=== PATIENT | male | born 1950 | race Caucasian/White ===

== ENCOUNTER 2020-01-11 18:13 | Emergency (ER) | payer OTHER, MEDICARE ==
[~2020-01-11] VITALS: Ht 188 cm; Wt 52.6 kg
--- NOTE | ~2020-01-11 | EMS ---
[facility] [address] [place] [address] EMS Patient Care Report Name: CELESTINO WELCH Room #: DEP Ale#: [id number] Admission: 01/11/20 Attend Phys: Discharge: 01/11/20 Date of : 46 Report #: [id number] THIS REPORT FOR: //name// Report Transmitted: 01/11/2020 23:03 EMS Care Summary [facility] MED-ACT Incident [id number] @ 01/11/2020 17:31 Incident Location [address] [place] [address] Patient CELESTINO WELCH Male, 69 Years 1950 Patient Address [address] [place] [address] Patient History Alzheimer's,Amputee,Anemia,Alcohol Abuse, Patient Allergies No known allergies, Patient Medications Levothyroxine, Tramadol, Plavix, Seroquel, Haloperidol, Chief Complaint head hurts Disposition Transported No Lights/[place] Dispatch Reason Falls Transported To [facility] Narrative M1133 dispatched non emergent to C2 injuries from a fall. Upon arrival staff report she went to check on the pt and found that he had a hematoma to left [facility] [address] [place] [address] EMS Patient Care Report Name: CELESTINO WELCH Room #: DEP ANIA Aguilera#: [id number] Admission: 01/11/20 Attend Phys: Discharge: 01/11/20 Date of : 46 Report #: [id number] forehead. Staff report they do not know of any recent calls. Staff report no change in pt mentation. EMS contacted pt???s daughter to inform her that EMS would prefer to transport to a trauma center due to the pt taking blood thinners. The pt???s daughter is adamant about transport to [facility]. Patient denies any neck or back pain. Patient denies loss of consciousness. Pt poor historian due to Alzheimer???s. Pt states he has pain to his right arm and his amputated left leg. Pt states this pain is normal. Pt denies headache. Pt denies blurred vision. Pt denies nausea or vomiting. Pt denies weakness. Pt assessment performed. Vital signs assessed. Pt assisted to cot. Pt moved to ambulance. Biocom performed prior to departure of scene to call [facility] to see if they will accept this pt due to pt taking blood thinners with injuries to the head. [facility] states they will accept the pt. Pt report given to RN. Pt care transferred to [facility] without incident. M1133 cleared call. Initial Vitals @18:00P: 96,BP: 108/63,SpO2: 98, @17:52P: 43,SpO2: 82, @17:44P: 102,R: 16,BP: 127/70,Pain: 2/10,GCS: 14,SpO2: 95,Revised Trauma: 12, @17:52BP: 116/69,SpO2: 95, @18:02P: 94,BP: 119/74,SpO2: 97, Assessments @18:02MENTAL:Person Oriented,Event Oriented,Place Oriented,SKIN:HEENT:Head/Face: Other,Eyes: Left Pupil: 3-mm,Eyes: Right Pupil: 3-mm,Neck/Airway: No Abnormalities,LUNG SOUNDS:General: No Abnormalities,ABDOMEN:General: No Abnormalities,PELVIS//GI:EXTREMITIES:Right Arm: Other,Left Leg: Other,Left Arm: No Abnormalities,Right Leg: No Abnormalities,PULSE:Radial: 2+ Normal,NEURO:No Abnormalities, Impression Injury of Head Timeline 17:30,Call Received 17:30,Psap Call 17:31,Dispatched 17:32,En Route 17:37,On Scene 17:40,At Patient 17:44,BP: 127/70 M,PULSE: 102,RR: 16 R,SPO2: 95 Ox,ETCO2: ,BG: ,PAIN: 2,GCS: 14, 17:52,BP: / M,PULSE: 43,RR: R,SPO2: 82 Ox,ETCO2: ,BG: ,PAIN: ,GCS: , [address] [place] [address] EMS Patient Care Report Name: REBEKAHCELESTINO Room #: DEP ANIA Aguilera#: [id number] Admission: 01/11/20 Attend Phys: Discharge: 01/11/20 Date of : 46 Report #: [id number] 17:52,BP: 116/69 M,PULSE: ,RR: R,SPO2: 95 Ox,ETCO2: ,BG: ,PAIN: ,GCS: , 17:53,Depart Scene 18:00,BP: 108/63 M,PULSE: 96,RR: R,SPO2: 98 Ox,ETCO2: ,BG: ,PAIN: ,GCS: , 18:02,BP: 119/74 M,PULSE: 94,RR: R,SPO2: 97 Ox,ETCO2: ,BG: ,PAIN: ,GCS: , 18:10,At Destination 18:34,Call Closed Disclaimer v1.1 Copyright 2020 [employer] This EMS Care Summary contains data elements from the applicable legal record (which may be displayed differently). It is designed to provide pertinent information for the following purposes: continuity of care, clinical quality, and state data reporting. The complete legal record is available to ED staff and administrators of the receiving hospital in [facility]'s Patient Tracker. All data is provided "as is."
[2020-01-11 22:50] VITALS: BP 149/81
== END 2020-01-11 23:42 | disposition home or self-care (01) ==
LOC: ER 18:13
DX: S09.8XXA Other specified injuries of head, initial encounter (principal); Z89.512 Acquired absence of left leg below knee; W01.0XXA Fall on same level from slipping, tripping and stumbling without subsequent striking against object, initial encounter; Y93.89 Activity, other specified; Y92.89 Other specified places as the place of occurrence of the external cause; Y99.8 Other external cause status

== ENCOUNTER 2020-02-02 13:00 | Emergency (ER) | payer OTHER, MEDICARE ==
[~2020-02-02] VITALS: Ht 188 cm; Wt 54.4 kg
--- NOTE | ~2020-02-02 | EMS ---
[facility] [address] [place] [address] EMS Patient Care Report Name: CELESTINO WELCH Room #: REG ANIA Aguilera#: [id number] Admission: 02/02/20 Attend Phys: Discharge: Date of : 46 Report #: [id number] THIS REPORT FOR: //name// Report Transmitted: 02/02/2020 13:50 EMS Care Summary [facility] MED-ACT Incident [id number] @ 02/02/2020 12:16 Incident Location [facility] [address] [place] [address] Patient CELESTINO WELCH Male, 69 Years 1950 Patient Address [address] [place] [address] Patient History Alzheimer's,Amputee,Anemia,Alcohol Abuse, Patient Allergies No known allergies, Patient Medications Seroquel, Plavix, Tramadol, Haloperidol, Levothyroxine, Chief Complaint " I fell out of my wheelchair" Disposition Transported No Lights/[place] Dispatch Reason Falls Transported To [facility] Narrative EMS made contact with 1 male pt sitting cross legged on the floor. Pt was A&O x4 and had and obvious cut to his forehead and right arm. Pt reported that he [facility] [address] [place] [address] EMS Patient Care Report Name: CELESTINO WELCH Room #: DEYSI Aguilera#: [id number] Admission: 02/02/20 Attend Phys: Discharge: Date of : 46 Report #: [id number] leaned too far forward in his wheelchair and feel out. Pt reported having a NICOLAS since the fall but no other acute pain. Pt denied dizziness, lightheadedness or anything else precipitating the fall. Pt denied head neck or back pain, SOA, CP, N/V or abd. pain. Pt reported his pain was a 2/10 and located on his head only. Pt voiced no further complaints/pertinent information. Initial Vitals @12:39P: 77,R: 16,BP: 155/80,Pain: 0/10,GCS: 15,SpO2: 94,Revised Trauma: 12, @12:45P: 78,R: 16,BP: 164/89,SpO2: 97, @12:40P: 86,SpO2: 95,[place] Suspected: false @12:51P: 16,R: 16,BP: 144/83,SpO2: 97, Assessments @12:26MENTAL:Person Oriented,Time Oriented,Event Oriented,Place Oriented,SKIN:HEENT:Head/Face: LAC,Neck/Airway: No Abnormalities,LUNG SOUNDS:ABDOMEN:PELVIS//GI:EXTREMITIES:Left Arm: No Abnormalities,Right Arm: No Abnormalities,Left Leg: No Abnormalities,Right Leg: No Abnormalities,PULSE:NEURO:No Abnormalities, Impression Injury of Head Procedures @12:30Surgical Mask on PatientResponse: Unchanged@12:33BandagingResponse: UnchangedSucceeded Timeline 12:14,Call Received 12:14,Psap Call 12:16,Dispatched 12:17,En Route 12:21,On Scene 12:24,At Patient 12:30,Surgical Mask on Patient,Response: Unchanged 12:33,Bandaging,Response: UnchangedSucceeded, 12:33,Depart Scene 12:39,BP: 155/80 M,PULSE: 77,RR: 16 R,SPO2: 94 Ox,ETCO2: ,BG: ,PAIN: 0,GCS: 15, 12:40,BP: / M,PULSE: 86,RR: R,SPO2: 95 Ox,ETCO2: ,BG: ,PAIN: ,GCS: , 12:45,BP: 164/89 M,PULSE: 78,RR: 16 R,SPO2: 97 Ox,ETCO2: ,BG: ,PAIN: ,GCS: , 12:51,BP: 144/83 M,PULSE: 16,RR: 16 R,SPO2: 97 Ox,ETCO2: ,BG: ,PAIN: ,GCS: , 12:54,At Destination 13:07,Call Closed Disclaimer v1.1 Copyright 2020 [employer] This EMS Care Summary contains data elements from the applicable legal record [address] [address] EMS Patient Care Report Name: REBEKAHCELESTINO Room #: REG ANIA Aguilera#: [id number] Admission: 02/02/20 Attend Phys: Discharge: Date of : 46 Report #: [id number] (which may be displayed differently). It is designed to provide pertinent information for the following purposes: continuity of care, clinical quality, and state data reporting. The complete legal record is available to ED staff and administrators of the receiving hospital in [facility]'s Patient Tracker. All data is provided "as is."
[2020-02-02] MEDS ORDERED: PLAVIX 75 MG TA75 MG PO (13:09)
[2020-02-02] MEDS ORDERED: FEROSUL325 M1 PO (13:10)
[2020-02-02] MEDS ORDERED: ACID CONTROLLER20 MG PO (13:10)
[2020-02-02] MEDS ORDERED: HALOPERIDOL 5 MG5 MG PO (13:10)
[2020-02-02] MEDS ORDERED: LOMOTIL 2.5-0.01 TAB PO (13:11)
[2020-02-02] MEDS ORDERED: LEVO-T50 MCG PO (13:11)
[2020-02-02] MEDS ORDERED: LYRICA100 MG PO (13:12)
[2020-02-02] MEDS ORDERED: MIRTAZAPINE7.5 MG PO (13:12)
[2020-02-02] MEDS ORDERED: NYSTATIN1 EA10 TOP (13:13)
[2020-02-02] MEDS ORDERED: THERAGRAN-M PR1 EAC1 PO (13:13)
[2020-02-02] MEDS ORDERED: SEROQUEL 25 MG25 M1 PO (13:13)
[2020-02-02] MEDS ORDERED: TRAMADOL 50 MG50 MG PO (13:14)
[2020-02-02] MEDS ORDERED: TYLENOL325 M1 PO (13:14)
[2020-02-02] MEDS ORDERED: SKIN PROTECTAN113 GM TOP (13:15)
[2020-02-02 15:44] VITALS: BP 157/84
== END 2020-02-02 15:44 | disposition home or self-care (01) ==
LOC: ER 13:00
DX: S01.01XA Laceration without foreign body of scalp, initial encounter (principal); S51.011A Laceration without foreign body of right elbow, initial encounter; Z79.01 Long term (current) use of anticoagulants; Z79.899 Other long term (current) drug therapy; W05.0XXA Fall from non-moving wheelchair, initial encounter; Y93.89 Activity, other specified; Y92.89 Other specified places as the place of occurrence of the external cause; Y99.8 Other external cause status

== ENCOUNTER 2020-02-07 03:49 | Emergency (ER) | payer OTHER, MEDICARE ==
[~2020-02-07] VITALS: Ht 170.2 cm; Wt 54.4 kg
--- NOTE | ~2020-02-07 | EMS ---
[facility] [address] [place] [address] EMS Patient Care Report Name: CELESTINO WELCH Room #: DEP ANIA Aguilera#: [id number] Admission: 02/07/20 Attend Phys: Discharge: 02/07/20 Date of : 46 Report #: [id number] THIS REPORT FOR: //name// Report Transmitted: 02/07/2020 08:09 EMS Care Summary [facility] MED-ACT Incident [id number] @ 02/07/2020 03:12 Incident Location [facility] [address] [place] [address] Patient CELESTINO WELCH Male, 69 Years 1950 Patient Address [facility] [place] [address] Patient History Other,Alzheimer's,Amputee,Anemia,Alcohol Abuse,Hypothyroidism, Patient Allergies No known allergies, Patient Medications Tramadol, Haloperidol, Seroquel, Levothyroxine, Plavix, Chief Complaint Fall Injury Disposition Transported No Lights/[place] Dispatch Reason Falls Transported To [facility] Narrative M1134 and [employer] [facility], responded to [facility] [place] for a 69 year old male who fell out of his wheelchair. Upon [facility] [address] [place] [address] EMS Patient Care Report Name: CELESTINO WELCH Room #: DEP ANIA Aguilera#: [id number] Admission: 02/07/20 Attend Phys: Discharge: 02/07/20 Date of : 46 Report #: [id number] arrival on scene, the patient was on the ground on his left side. The fall was unwitnessed by staff, but a resident stated that the patient fell approximately 30 minutes prior to EMS arrival on scene and stated he was talking the whole time including immediately after falling (no reason to suspect that there was any loss of consciousness). The patient had a previous injury to his forehead for which he had xavier in place. The fall appeared to have aggravated the injury to the patient's forehead as he had blood stemming from the injury. The patient's blood appeared to already be coagulated and dried. Bleeding was controlled naturally prior to EMS arrival on scene. Little to no swelling was noted to the area. Palpation of the patient's neck and back did not reveal any abnormalities and patient denied any pain with palpation. The patient complained of pain to his left elbow as well as his right leg. A small laceration was noted to the patient's right lower leg. The patient's left leg was previously amputated around the knee. Examination of the patient's arms and right leg revealed no crepitus or significant pain with palpation. The patient stated that he was taking blood thinners but he could not specify which ones. The list of patient conditions provided by the facility did not include any medications. Pulling up the patient's information via [employer], it is noted that the patient takes Plavix. Patient was lifted from the ground onto the stretcher. Once in the ambulance, the patient was given a surgical mask. The patient began to complain of pain to his neck, as such, a C-Collar was applied. Throughout transport patient remained AOx4. He was able to answer where he was, what day it was, who the vice president of nursing was, and what was hurting him. The patient denied any dizziness prior to or after the fall. Patient was brought to [facility] and patient report was given [id number] to [facility] ER staff. EMS was directed by hospital staff to bring the patient to ED room 9. Initial Vitals @03:37P: 101,R: 18,BP: 145/84,Pain: 2/10,GCS: 15,SpO2: 99,Revised Trauma: 12, @03:44P: 91,R: 18,BP: 152/86,Pain: 2/10,GCS: 15,SpO2: 100,Revised Trauma: 12, @03:31P: 103,R: 18,BP: 166/96,Pain: 2/10,GCS: 15,SpO2: 99,Revised Trauma: 12, @03:38P: 92,R: 18,BP: 134/78,Pain: 2/10,GCS: 15,Revised Trauma: 12, Assessments @03:22MENTAL:Person Oriented,Place Oriented,Time Oriented,Event Oriented,SKIN:HEENT:Head/Face: Other,Neck/Airway: Other,LUNG SOUNDS:ABDOMEN:PELVIS//GI:EXTREMITIES:Left Arm: Other,Right Leg: Abnormal Sensation,Left Arm: Abnormal Sensation,PULSE:Radial: 2+ Normal,NEURO: Impression Injury of Head [facility] [address] [place] [address] EMS Patient Care Report Name: CELESTINO WELCH Room #: DEP ANIA Aguilera#: [id number] Admission: 02/07/20 Attend Phys: Discharge: 02/07/20 Date of : 46 Report #: [id number] Procedures @03:30Surgical Mask on PatientResponse: Unchanged@03:35Saline Lock 0cc (18 ga) Site: Antecubital-RightResponse: UnchangedFailed Timeline 03:10,Call Received 03:10,Psap Call 03:12,Dispatched 03:14,En Route 03:18,On Scene 03:21,At Patient 03:30,Surgical Mask on Patient,Response: Unchanged 03:31,BP: 166/96 M,PULSE: 103,RR: 18 R,SPO2: 99 Ox,ETCO2: ,BG: ,PAIN: 2,GCS: 15, 03:32,Depart Scene 03:35,Saline Lock 0cc 18 ga Site: Antecubital-Right,Response: UnchangedFailed, 03:37,BP: 145/84 M,PULSE: 101,RR: 18 R,SPO2: 99 Ox,ETCO2: ,BG: ,PAIN: 2,GCS: 15, 03:38,BP: 134/78 M,PULSE: 92,RR: 18 R,SPO2: Ox,ETCO2: ,BG: ,PAIN: 2,GCS: 15, 03:44,At Destination 03:44,BP: 152/86 M,PULSE: 91,RR: 18 R,SPO2: 100 Ox,ETCO2: ,BG: ,PAIN: 2,GCS: 15, 04:05,Call Closed Disclaimer v1.1 Copyright 2020 [employer] This EMS Care Summary contains data elements from the applicable legal record (which may be displayed differently). It is designed to provide pertinent information for the following purposes: continuity of care, clinical quality, and state data reporting. The complete legal record is available to ED staff and administrators of the receiving hospital in [employer]'s Patient Tracker. All data is provided "as is."
[~2020-02-07 03:49] MED LIST: ACID CONTROLLER20 MG PO; FEROSUL325 M1 PO; HALOPERIDOL 5 MG5 MG PO; LEVO-T50 MCG PO; LOMOTIL 2.5-0.01 TAB PO; LYRICA100 MG PO; MIRTAZAPINE7.5 MG PO; NYSTATIN1 EA10 TOP; PLAVIX 75 MG TA75 MG PO; SEROQUEL 25 MG25 M1 PO; SKIN PROTECTAN113 GM TOP; THERAGRAN-M PR1 EAC1 PO; TRAMADOL 50 MG50 MG PO; TYLENOL325 M1 PO
[2020-02-07 07:45] VITALS: BP 160/80
== END 2020-02-07 07:50 ==
LOC: ER 03:49
DX: S80.212A Abrasion, left knee, initial encounter (principal); S09.90XA Unspecified injury of head, initial encounter; Z79.01 Long term (current) use of anticoagulants; Z79.899 Other long term (current) drug therapy; W05.0XXA Fall from non-moving wheelchair, initial encounter; Y93.89 Activity, other specified; Y92.89 Other specified places as the place of occurrence of the external cause; Y99.8 Other external cause status

== ENCOUNTER 2020-02-24 08:50 | Emergency (ER) | payer OTHER, MEDICARE ==
[~2020-02-24] VITALS: Ht 185.4 cm; Wt 52.2 kg
[2020-02-24 11:14] VITALS: BP 157/88
== END 2020-02-24 11:14 ==
LOC: ER 08:50
DX: S01.111A Laceration without foreign body of right eyelid and periocular area, initial encounter (principal); Z79.01 Long term (current) use of anticoagulants; Z79.899 Other long term (current) drug therapy; Z87.891 Personal history of nicotine dependence; W06.XXXA Fall from bed, initial encounter; Y93.89 Activity, other specified; Y92.89 Other specified places as the place of occurrence of the external cause; Y99.8 Other external cause status